=== PATIENT | male | born 1980 | race Hispanic/Latino ===

== ENCOUNTER 2024-04-08 09:13 | Emergency (ER) | payer SELFPAY ==
[~2024-04-08] VITALS: Ht 180.3 cm; Wt 109.8 kg
--- NOTE | 2024-04-08 09:31 | ERN ---
ED Note History of Present Illness Stated Complaint: LLQ PAIN Chief Complaint: Abdominal Pain Time Seen by MD: 09:15 Dictation: PATIENT IS A 44-YEAR-OLD MALE WITH no known medical problems came to the ED with chief complaint of severe abdominal pain since 2 days. Patient informed about suspected food poisoning when he ate outside 2 days ago as the symptoms started after that, he had nausea, abdominal pain, diarrhea. Patient also complains of shortness of breaths, chest pain. Allergies: Coded Allergies: aspirin (Unverified Allergy, Severe, RASH, 04/08/24) Past Medical History Past Medical History: No Pertinent History Surgical History: None PSYCH History: no pertinent psych hx Review of System Dictation Constitutional-no chills, weight loss/gain, fever Eyes-no injury, pain, redness and discharge ENT-no injury, pain, swelling Cardiovascular no palpitations, edema. Patient has generalized chest pain Respiratory no cough, wheezing. Patient complains of mild shortness of breath Abdomen/GI-n no constipation, vomiting, patient has severe abdominal pain, diarrhea, nausea Back no injury and pain Genitourinary no injury, bleeding and discharge Musculoskeletal/extremities no injury, deformity Skin no rash, discoloration Neuro-no headache, weakness, numbness, tingling, seizures, tremors Psych-no suicidal ideation, homicidal ideation, hallucinations, depression, anxiety, memory loss Initial Vital Sign VS Vital Signs Date Time Temp Pulse Resp B/P (MAP) Pulse Ox O2 Delivery O2 Flow Rate FiO2 04/08/24 09:24 98.4 63 16 108/74 Room Air 0 04/08/24 13:14 100 21 Physical Exam Dictation General-patient is awake alert and oriented Head/neck-normocephalic, atraumatic Eyes-PERRL, EOMI, vision at baseline Neck-trachea midline, supple, no nuchal rigidity Cardiovascular-RRR, normal S1/S2, no MRG is, no JVD Respiratory-no distress, wheezing, rales, rhonchi Abdomen-no soft, nondistended . Patient has tenderness and guarding Skin warm, dry, normal turgor, no rash Musculoskeletal/extremities pulses equal, no cyanosis Neuro-COA X 4, GCS 15, strength 5/5, CN 2-12 intact Psych-normal behavior, mood and affect normal Results (Laboratory/Radiology) Laboratory/Radiology Laboratory Tests Test 04/08/24 09:45 04/08/24 12:17 White Blood Count 6.2 K/uL (4.8-10.8) Red Blood Count 4.85 MIL/uL (4.50-6.20) Hemoglobin 13.8 g/dL (14.0-18.0) L Hematocrit 42.2 % (42-54) Mean Corpuscular Volume 87.0 fL (79-99) Mean Corpuscular Hemoglobin 28.5 pg (27.0-33.0) Mean Corpuscular Hemoglobin Concent 32.7 g/dL (32.0-36.0) Red Cell Distribution Width 14.1 % (11.0-15.5) Platelet Count 235 K/uL (130-400) Mean Platelet Volume 10.9 fL (7.5-10.5) H Immature Granulocyte % (Auto) 0.3 % (0-1) Neutrophils (%) (Auto) 76.7 % (40.0-77.0) Lymphocytes (%) (Auto) 15.1 % (21.0-51.0) L Monocytes (%) (Auto) 7.1 % (3.0-13.0) Eosinophils (%) (Auto) 0.5 % (0.0-8.0) Basophils (%) (Auto) 0.3 % (0.0-5.0) Neutrophils # (Auto) 4.8 K/uL (1.8-7.7) Lymphocytes # (Auto) 0.9 K/uL (1.0-4.8) L Monocytes # (Auto) 0.4 K/uL (0.1-1.0) Eosinophils # (Auto) 0.03 K/uL (0.00-0.70) Basophils # (Auto) 0.02 K/uL (0.00-0.20) Absolute Immature Granulocyte (auto 0.02 K/uL (0-1) Nucleated Red Blood Cells 0.0 % (0.0-0.19) Sodium Level 138 mmol/L (136-145) Potassium Level 3.9 mmol/L (3.5-5.1) Chloride Level 102 mmol/L (101-111) Carbon Dioxide Level 28 mmol/L (21-32) Blood Urea Nitrogen 14 mg/dL (7-18) Creatinine 1.0 mg/dL (0.5-1.3) Glomerular Filtration Rate Calc 96 mL/min (>90) Random Glucose 93 mg/dL (70-105) Total Calcium 8.8 mg/dL (8.5-10.1) Total Bilirubin 1.2 mg/dL (0.2-1.0) H Direct Bilirubin 0.2 mg/dL (0.0-0.3) Aspartate Amino Transf (AST/SGOT) 15 U/L (10-37) Alanine Aminotransferase (ALT/SGPT) 25 U/L (12-78) Alkaline Phosphatase 67 U/L (50-136) Troponin I High Sensitivity < 4 ng/L (4-75) L Total Protein 7.3 g/dL (6.0-8.3) Albumin 3.8 g/dL (3.5-5.0) Lipase 22 U/L (16-77) Urine Color YELLOW (YELLOW) Urine Appearance CLEAR (CLEAR) Urine pH 6.5 (5.0-8.0) Urine Specific [place] 1.028 (1.001-1.031) Urine Protein 10 mg/dL (NEGATIVE) H Urine Glucose (UA) NEGATIVE mg/dL (NEGATIVE) Urine Ketones 5 mg/dL (NEGATIVE) H Urine Occult Blood NEGATIVE (NEGATIVE) Urine Nitrate NEGATIVE (NEGATIVE) Urine Bilirubin NEGATIVE mg/dL (NEGATIVE) Urine Urobilinogen 0.2 mg/dL (0.2-1.0) Urine Leukocyte Esterase NEGATIVE Erna/uL Urine RBC 2-5 /HPF (0-1) H Urine WBC 0-1 /HPF (0-1) Urine Bacteria RARE /HPF (None Seen) EKG Comment: EKG taken on 04/08/2024 at 9:27 a.m. Patient is in sinus rhythm with heart rate of 52 MT [address] elevations or depressions seen ED Course ED Course Orders Procedure Category Date Status Time Cbc With Differential LAB 04/08/24 Complete 09:17 12 Lead Ekg Tracing- EKG 04/08/24 Resulted Technical 09:17 Troponin I High LAB 04/08/24 Complete Sensitivity 09:17 Urinalysis Profile LAB 04/08/24 Complete 09:17 Basic Metabolic Panel LAB 04/08/24 Complete 09:17 Lipase LAB 04/08/24 Complete 09:17 Hepatic Function Panel LAB 04/08/24 Complete 09:19 Ct Abdomen/Pelvis CT 04/08/24 Resulted W/Contrast 09:36 Ketorolac PHA 04/08/24 Complete Tromethamine 30mg/Ml 10:00 Ondansetron 4mg Inj PHA 04/08/24 Complete (Zofran 4mg Inj) 10:00 Pantoprazole 40mg Inj PHA 04/08/24 Complete (Protonix 40mg Inj 10:00 Iohexol (Omnipaque) PHA 04/08/24 Complete 10:45 Iohexol (Omnipaque) PHA 04/08/24 Complete 12:26 Current Medications Medications (Trade) Dose Ordered Sig/Dania Route PRN Reason Start Time Stop Time Status Last Admin Dose Admin Iohexol (Omnipaque) 35,000 mg STK-MED ONCE IV 04/08/24 10:45 04/08/24 10:45 DC Iohexol (Omnipaque) 35,000 mg STK-MED ONCE IV 04/08/24 12:26 04/08/24 12:27 DC Ketorolac Tromethamine (toRADol) 30 mg ONCE ONCE IVP 04/08/24 10:00 04/08/24 10:01 DC 04/08/24 12:00 Ondansetron HCl (zoFRAN 4MG INJ) 4 mg ONCE ONCE IVP 04/08/24 10:00 04/08/24 10:01 DC 04/08/24 12:01 Pantoprazole Sodium (PROTonix 40MG INJ) 40 mg ONCE ONCE IVP 04/08/24 10:00 04/08/24 10:01 DC 04/08/24 12:00 Vital Signs Date Time Temp Pulse Resp B/P (MAP) Pulse Ox O2 Delivery O2 Flow Rate FiO2 04/08/24 13:14 98.8 99 18 166/72 100 Room Air* 0 21 04/08/24 09:24 98.4 63 16 108/74 Room Air 0 Medical Decision Making MDM INITIAL IMPRESSION Initial history and physical concerning for acute pancreatitis, acute viral gastroenteritis Contributing medical problems: None I have reviewed the triage nursing notes and vital signs. Initial plan: Laboratory evaluation and CT abdomen/pelvis DATA REVIEW I have reviewed additional NN, repeat VS, and monitoring where indicated. Heart rate, blood pressure, and O2 saturation are acceptable. Labs including CBC, BMP, lipase, troponin are all unremarkable per my independent interpretation. ED COURSE Interventions: Pain medication Reassessment: Improved CT scan of the abdomen and pelvis per my independent interpretation shows no free air major abnormalities. Consistent with colitis. DISPOSITION Final diagnostic impression: Colitis I discussed my findings, clinical impression and treatment recommendations with the patient. My final plan for disposition was made based upon -mild risk of complications and potential morbidity of the patient's condition. -Discussion with the patient regarding management options. Patient will be discharged with medication DX & DISP Disposition: Discharge Departure Impression: Primary Impression: Colitis Condition: Stable Scripts Dicyclomine HCl (Bentyl) 20 Mg Tab 1 TAB PO TID for irritable bowel symptoms for 10 Days, #30 TAB 0 Refills Prov: URSULA ANNA DO 04/08/24 Amoxicillin/Potassium Clav (Amox Tr-K Clv 875-125 mg Tab) 875 Mg-125 Mg Tablet 1 TAB PO BID for 10 Days, #20 TAB 0 Refills Prov: URSULA ANNA DO 04/08/24 Additional Instructions: You appear to have colitis, which is an infection of the lower bowel. Symptoms can include abdominal discomfort, vomiting, and diarrhea. Your vital signs have been stable. Your blood work ( CBC, BMP, liver function tests, troponin, lipase, urinalysis ) Is stable. The CT scan shows colitis but is otherwise unremarkable. I have prescribed Augmentin, which is an antibiotic. Please take as prescribed. For abdominal discomfort, you can continue taking 800 mg of ibuprofen or 1000 mg of Tylenol. Alternate these medications every 4 hours as needed. These medications are [id number]. I have also prescribed Bentyl, which is a medication for abdominal cramping and discomfort. You can take this up to 4 times a day as needed. Please drink plenty of liquids. An electrolyte solution such as Gatorade is a good choice. I recommended diet of plenty of fruits. Avoid processed foods and foods that are irritating to the stomach. Please follow up with your primary doctor in 48 hours for re-evaluation. Return to the emergency department sooner if you have any concerns. DELIA MAIN MD Apr 08, 2024 09:30 URSULA ANNA DO Apr 08, 2024 14:08
--- NOTE | 2024-04-08 09:52 | EKG ---
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
[2024-04-08 09:58] LABS: BASOPHILS # (AUTO) 0.02 K/uL (0.00-0.20); BASOPHILS % (AUTO) 0.3 % (0.0-5.0); EOSINOPHILS # (AUTO) 0.03 K/uL (0.00-0.70); EOSINOPHILS % (AUTO) 0.5 % (0.0-8.0); HEMATOCRIT 42.2 % (42-54); IMMATURE GRANULOCYTE ABSOLUTE 0.02 K/uL (0-1); LYMPHOCYTES # (AUTO) 0.9 K/uL (1.0-4.8); LYMPHOCYTES % (AUTO) 15.1 % (21.0-51.0); MEAN CORPUSCULAR HEMOGLOBIN 28.5 pg (27.0-33.0); MEAN CORPUSCULAR HGB CONC 32.7 g/dL (32.0-36.0); MONOCYTES # (AUTO) 0.4 K/uL (0.1-1.0); MONOCYTES % (AUTO) 7.1 % (3.0-13.0); NEUTROPHILS # (AUTO) 4.8 K/uL (1.8-7.7); NEUTROPHILS % (AUTO) 76.7 % (40.0-77.0); PLATELET COUNT (AUTO) 235 K/uL (130-400); RED BLOOD CELL COUNT(AUTO) 4.85 MIL/uL (4.50-6.20); RED CELL DISTRIBUTION WIDTH 14.1 % (11.0-15.5); WHITE BLOOD COUNT (AUTO) 6.2 K/uL (4.8-10.8)
[2024-04-08 10:11] LABS: POTASSIUM 3.9 mmol/L (3.5-5.1)
[2024-04-08 10:17] LABS: ALBUMIN 3.8 g/dL (3.5-5.0); BILIRUBIN,DIRECT 0.2 mg/dL (0.0-0.3); BILIRUBIN,TOTAL 1.2 mg/dL (0.2-1.0); TOTAL PROTEIN, SERUM 7.3 g/dL (6.0-8.3)
[2024-04-08] MEDS ORDERED: IOHEXOL 350 MG/ML 100ML INFUS..BTL IV ONE ×2 (10:45→12:26)
[2024-04-08] MEDS: PANTOPrazole 40 MG/VIAL IVP ONE (12:00)
[2024-04-08] MEDS: ketOROlac 30MG VIAL (30MG/ML) IVP ONE (12:00)
[2024-04-08] MEDS: ondanSETRON 4MG INJ IVP ONE (12:01)
[2024-04-08 13:06] LABS: APPEARANCE,URINE CLEAR (CLEAR); BILIRUBIN,URINE NEGATIVE (NEGATIVE); COLOR,URINE YELLOW (YELLOW); GLUCOSE, URINE (UA) NEGATIVE (NEGATIVE); KETONES,URINE 5 mg/dL (NEGATIVE); LEUKOCYTE ESTERASE ,URINE NEGATIVE Leu/uL (NEGATIVE); NITRATE,URINE NEGATIVE (NEGATIVE); OCCULT BLOOD,URINE NEGATIVE (NEGATIVE); PH,URINE 6.5 (5.0-8.0); PROTEIN,URINE 10 mg/dL (NEGATIVE); UROBILINOGEN,URINE 0.2 mg/dL (0.2-1.0)
[2024-04-08 13:12] LABS: ADD UA MICROSCOPIC YES
[2024-04-08 13:15] LABS: BACTERIA,URINE RARE /HPF (None Seen); MUCUS,URINE RARE LPF (None Seen); WBC,URINE 0-1 /HPF (0-1)
--- NOTE | 2024-04-08 13:54 | HMCIMG ---
CT ABDOMEN/PELVIS W/CONTRAST REASON: abdominal pain , acute pancreatitis / acute cholecystitis ? COMPARISON: None. TECHNIQUE: Images are obtained from lung bases to the symphysis pubis following IV contrast, 100 cc Omnipaque 350. FINDINGS: Lung bases are clear. There are no focal liver lesions. There are normal-appearing kidneys.. Spleen and pancreas appear unremarkable. The gallbladder appears normal as well. There is moderate wall thickening in the a sending and transverse colon. There is less pronounced wall thickening in the descending colon. These findings appear consistent with acute colitis. Small bowel loops appear unremarkable. No evidence of obstruction. The appendix appears unremarkable. There is no evidence of free fluid or intraperitoneal air. There are no focal fluid collections. Aorta and retroperitoneum appear normal as do pelvic soft tissue structures. The anterior abdominal wall is intact. Osseous structures appear unremarkable. IMPRESSION: 1. Wall thickening in the a sending and transverse colon consistent with acute colitis, there are less pronounced inflammatory changes in the descending colon. 2. Otherwise unremarkable exam. CT was performed with one or more following dose reduction techniques: automated exposure control, adjustment of the mA and kv according to patient's size, or use of a iterative reconstruction technique.
[2024-04-08] MEDS ORDERED: DICY20TA2 PO (14:07)
[2024-04-08] MEDS ORDERED: AMOX1TAB16 PO (14:07)
[2024-04-08 14:35] VITALS: BP 137/72; PULSE 77; RESP 18; TEMP 98.8; O2SAT 98
== END 2024-04-08 14:43 | disposition home or self-care (01) ==
LOC: EDH 09:13
DX: K52.9 Noninfective gastroenteritis and colitis, unspecified (principal); Z88.6 Allergy status to analgesic agent
CPT/HCPCS: 99285; 74177; 96374; 96375; 80076; 84484; 80048; 83690; 85025; 81001; 36415; 93005; J2405; J1885; J2470; Q9967 ×2